=== PATIENT | female | born 1995 | race Caucasian/White ===

== ENCOUNTER 2020-06-04 20:03 | Emergency (ER) | payer OTHER, SELFPAY ==
[2020-06-04 20:10] VITALS: BP 126/69; PULSE 114; RESP 20; TEMP 37.1; O2SAT 100; BMI 22.8
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
--- NOTE | 2020-06-04 20:25 | PC.NURSE ---
PATIENT ANXIOUS, TEARFUL BUT COOPERATIVE. WORRIED ABOUT HER DOG IN [place] AND LACK OF CARE. EXPECTING [employer] TO ARRIVE WITH PATIENT'S PHONE, PER EMS REPORT. WILL CONTINUE TO MONITOR. SETH IVERSON EVALUATED PATIENT.
[2020-06-04] MEDS: Acetaminophen 325 MG TABLET 650 MG PO (20:32)
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
--- NOTE | 2020-06-04 22:27 | PC.NURSE ---
This RN speaking with [place] [employer] at this time regarding location of patient's mobile phone. This RN was told by EMS that [place] [employer] was supposed to bring mobile phone to ED. [employer] states that they were unable to locate patient's mobile phone.
== END 2020-06-04 22:50 | disposition home or self-care (01) ==
PROVIDERS: Emergency Provider Emergency Medicine
DX: S09.90XA Unspecified injury of head, initial encounter (principal); G44.309 Post-traumatic headache, unspecified, not intractable; M54.2 Cervicalgia; Y04.8XXA Assault by other bodily force, initial encounter; Y93.9 Activity, unspecified; Y92.810 Car as the place of occurrence of the external cause; Y99.9 Unspecified external cause status
CPT/HCPCS: 70450; 72125; 99283; 99284